=== PATIENT | female | born 1935 | race American Indian/Alaskan Native ===

== ENCOUNTER 2019-04-13 11:06 | Outpatient (CLI) | payer OTHER ==
--- NOTE | 2019-04-13 12:50 | XRay Report ---
BILATERAL KNEES STANDING, AP VIEW INDICATION: M25.569) PAIN IN UNSPECIFIED KNEE. COMPARISON: None. IMPRESSION: Normal bone mineralization. Moderate to severe medial compartment joint space narrowing is identified in both knees. There is relative sparing of the lateral compartments. No evidence for fracture or bone lesion. The soft tissues are unremarkable. Signer Name: Brad Campbell Jr, MD Signed: 04/13/2019 12:46 PM Workstation Name: [id number]
== END 2019-04-13 11:07 | disposition home or self-care (01) ==
LOC: XRAY 11:06
PROVIDERS: ATTEND Orthopaedic Surgery
DX: M25.561 Pain in right knee (principal); M25.562 Pain in left knee
CPT/HCPCS: 73565